=== PATIENT | female | born 1940 | race Caucasian/White ===

== ENCOUNTER 2017-03-03 10:47 | Outpatient (CLI) | payer MEDICARE ==
[2017-03-03 18:39] LABS: CALCIUM 9.5 mg/dL (8.5-10.3); CREATININE 1.1 mg/dL (0.4-1.0); POTASSIUM 4.4 mmol/L (3.5-5.0)
[2017-03-03 18:48] LABS: BASOPHILS % (AUTO) 0.5 %; EOSINOPHILS # (AUTO) 0.1 10^3/uL (0.0-0.7); HCT - HEMATOCRIT 42.4 % (37.0-47.0); HGB - HEMOGLOBIN 13.6 g/dL (12.0-16.0); LYMPHOCYTES # (AUTO) 0.9 10^3/uL (1.5-3.5); LYMPHOCYTES % (AUTO) 12.2 %; MEAN CORPUSCULAR HEMOGLOBIN 29.2 pg (27.0-31.0); MEAN CORPUSCULAR VOLUME 91.2 fL (81.0-99.0); MEAN PLATELET VOLUME 9.1 fL (7.9-10.8); MONOCYTES # (AUTO) 0.5 10^3/uL (0.0-1.0); MONOCYTES % (AUTO) 6.7 %; NEUTROPHILS # (AUTO) 5.8 10^3/uL (1.5-6.6); NEUTROPHILS % (AUTO) 79.6 %; NUCLEATED RED BLOOD CELLS AUTO 0.1 /100WBC; RED BLOOD COUNT 4.65 10^6/uL (4.20-5.40); RED CELL DISTRIBUTION WIDTH 16.9 % (12.0-15.0); UNCORRECTED WHITE BLOOD COUNT 7.3 x10^3/uL; WHITE BLOOD COUNT 7.3 x10^3/uL (4.8-10.8)
== END 2017-03-03 10:48 | disposition home or self-care (01) ==
LOC: LAB.F 10:47
PROVIDERS: ATTEND Internal Medicine
DX: E78.5 Hyperlipidemia, unspecified (principal); E03.9 Hypothyroidism, unspecified; G62.9 Polyneuropathy, unspecified; R06.00 Dyspnea, unspecified
CPT/HCPCS: 36415; 80048; 83880; 85025

== ENCOUNTER 2017-03-08 18:30 | Emergency (ER) | payer MEDICARE ==
[2017-03-08] MEDS ORDERED: IPRATROPIUM/ALBUTEROL 3 ML NEB INH STA (19:03)
--- NOTE | 2017-03-08 19:08 | ED Physician Documentation ---
PD HPI DYSPNEA - Stated complaint Stated Complaint: SOA - Chief complaint Chief Complaint: Critical Care - History obtained from History obtained from: Patient - History of Present Illness Timing - onset: Other (For about 6 months now she's had progressive dyspnea, with an exertional component but no orthopnea. It is reach the point at this juncture where she can't roll over in bed or even walk 3 feet without becoming winded. Back in September she had a chest x-ray showing cardiomegaly. She had spirometry at that point showing obstructive lung disease. She was never a smoker. She has a mild cough. No chest pain. More recently she had labs 5 days ago with an elevated BNP. She has no pedal edema.) Review of Systems Ten Systems: 10 systems reviewed and negative Constitutional: denies: Fever, Chills Eyes: reports: Reviewed and negative Throat: reports: Reviewed and negative Cardiac: denies: Chest pain / pressure, Palpitations, Pedal edema, Calf pain Respiratory: denies: Hemoptysis, Wheezing PD PAST MEDICAL HISTORY - Past Medical History Past Medical History: Yes GI: GERD - Past Surgical History Past Surgical History: No - Present Medications Home Medications: Ambulatory Orders Medication Instructions Recorded Confirmed Albuterol Sulfate [Proventil Hfa 1 - 2 puffs IH Q4H PRN #1 03/08/17 Inhaler] hfa.aer.ad Azithromycin [Zithromax] 250 mg PO DAILY #4 tablet 03/08/17 - Allergies Allergies/Adverse Reactions: Allergies Allergy/AdvReac Type Severity Reaction Status Date / Time adhesive Allergy Unknown Verified 03/08/17 18:48 amoxicillin Allergy Unknown Verified 03/08/17 18:48 Sulfa (Sulfonamide Allergy Unknown Verified 03/08/17 18:48 Antibiotics) - Social History Does the pt smoke?: No Smoking Status: Never smoker - Family History Family history: reports: Non contributory - POLST Patient has POLST: No PD ED PE NORMAL - Vitals Vital signs reviewed: Yes - General General: Alert and oriented X 3, No acute distress - HEENT HEENT: PERRL, EOMI, Ears normal - Neck Neck: Supple, no meningeal sign, No JVD - Cardiac Cardiac: RRR, No murmur - Respiratory Respiratory: Other (Seems a little winded at rest, fine rhonchi throughout) - Abdomen Abdomen: Soft, Non tender - Extremities Extremities: No deformity, No tenderness to palpate, No edema, No calf tenderness / cord - Neuro Neuro: Alert and oriented X 3, Normal speech - Psych Psych: Normal mood, Normal affect Results - Vitals Vitals: Vital Signs - 24 hr 03/08/17 03/08/17 03/08/17 18:35 19:28 21:03 Temperature 37.7 C H 37.0 C Heart Rate 105 H 100 86 Respiratory 24 21 14 Rate Blood Pressure 142/97 H 128/82 H O2 Saturation 92 97 Oxygen O2 Source Room air - EKG (time done) 1847 Rate: Rate (enter#) (106) Rhythm: Sinus tachycardia (with pvcs) Prosser: RAD Intervals: Normal ND Ischemia: Normal ST segments Computer interpretation: Agree with computer - Labs Labs: Laboratory Tests 03/08/17 03/08/17 03/08/17 19:06 19:06 19:06 WBC 10.4 RBC 4.64 Hgb 13.3 Hct 41.5 MCV 89.5 MCH 28.6 MCHC 32.0 RDW 16.9 H Plt Count 151 MPV 8.3 Neut # 9.2 H Lymph # 0.4 L [place] # 0.7 Eos # 0.0 Baso # 0.0 Absolute Nucleated RBC 0.00 Nucleated RBCs 0.0 D-Dimer 420.0 H Sodium 137 Potassium 4.1 Chloride 104 Carbon Dioxide 21 Anion Gap 12.0 BUN 16 Creatinine 1.2 H Estimated GFR (MDRD) 44 L Glucose 133 H Calcium 8.6 Total Bilirubin 3.1 H AST 37 ALT 37 Alkaline Phosphatase 58 Troponin I B-Natriuretic Peptide Total Protein 7.0 Albumin 3.9 Globulin 3.1 Albumin/Globulin Ratio 1.3 Lipase 32 03/08/17 03/08/17 19:06 19:06 WBC RBC Hgb Hct MCV MCH MCHC RDW Plt Count MPV Neut # Lymph # [place] # Eos # Baso # Absolute Nucleated RBC Nucleated RBCs D-Dimer Sodium Potassium Chloride Carbon Dioxide Anion Gap BUN Creatinine Estimated GFR (MDRD) Glucose Calcium Total Bilirubin AST ALT Alkaline Phosphatase Troponin I < 0.04 B-Natriuretic Peptide 772 H Total Protein Albumin Globulin Albumin/Globulin Ratio Lipase - Rads (name of study) 2v chest Radiology: EMP read contemporaneously (Persistent patchy densities in the left lower lobe could be scarring or atelectasis, mild bronchial wall thickening, no new consolidation.) Ct CHest Angio Radiology: EMP read contemporaneously (No PE, irregular opacities in the left lung base, could be aspiration or infectious. Small bilateral pleural effusions. There is evidence of right heart strain with retrograde flow of contrast into the IVC and hepatic veins and increased RV to LV ratio. Cardiomegaly with small pericardial effusion, mediastinal lymphadenopathy thought to be reactive.) PD MEDICAL DECISION MAKING - ED course ED course: 77-year-old woman presents with subacute and worsening shortness of breath with exertional dyspnea. Spirometry back in September suggested obstructive disease, however she does have increasing BNPs without evidence of fluid overload currently. D-dimer was high so sent for CT angiogram which did demonstrate reflux of contrast consistent with right-sided heart failure. Also wonder if there might be an infectious component based on imaging studies and borderline temperature of white count. She felt much better after nebulized treatment here. She is started on Zithromax and has an appointment for an echocardiogram tomorrow. She was able to walk in the [place] without hypoxemia or significant tachypnea. Departure - Departure Disposition: Home, Self Care Clinical Impression: Dyspnea Qualifiers: Dyspnea type: dyspnea on exertion Qualified Code(s): R06.09 - Other forms of dyspnea Congestive heart failure Qualifiers: Congestive heart failure type: unspecified congestive heart failure type Congestive heart failure chronicity: unspecified congestive heart failure chronicity Qualified Code(s): I50.9 - Heart failure, unspecified Condition: Good Record reviewed to determine appropriate education?: Yes Instructions: Heart Failure Dc Prescriptions: Albuterol Sulfate [Proventil Hfa Inhaler] 1 - 2 puffs IH Q4H PRN #1 hfa.aer.ad PRN Reason: Cough Azithromycin [Zithromax] 250 mg PO DAILY #4 tablet Comments: Keep your appointment for echocardiogram tomorrow. Follow up with Dr. Demarco Wednesday for results.
[2017-03-08 19:13] LABS: BASOPHILS % (AUTO) 0.4 %; HCT - HEMATOCRIT 41.5 % (37.0-47.0); HGB - HEMOGLOBIN 13.3 g/dL (12.0-16.0); LYMPHOCYTES # (AUTO) 0.4 10^3/uL (1.5-3.5); MEAN CORPUSCULAR HEMOGLOBIN 28.6 pg (27.0-31.0); MEAN CORPUSCULAR VOLUME 89.5 fL (81.0-99.0); MEAN PLATELET VOLUME 8.3 fL (7.9-10.8); MONOCYTES # (AUTO) 0.7 10^3/uL (0.0-1.0); MONOCYTES % (AUTO) 6.6 %; NEUTROPHILS # (AUTO) 9.2 10^3/uL (1.5-6.6); RED BLOOD COUNT 4.64 10^6/uL (4.20-5.40); RED CELL DISTRIBUTION WIDTH 16.9 % (12.0-15.0); UNCORRECTED WHITE BLOOD COUNT 10.4 x10^3/uL; WHITE BLOOD COUNT 10.4 x10^3/uL (4.8-10.8)
[2017-03-08] MEDS ORDERED: IPRATROPIUM/ALBUTEROL 3 ML NEB INH ONE (19:19)
[2017-03-08 19:28] LABS: ALBUMIN/GLOBULIN RATIO 1.3 (1.0-2.2); BILIRUBIN,TOTAL 3.1 mg/dL (0.2-1.0); CALCIUM 8.6 mg/dL (8.5-10.3); CREATININE 1.2 mg/dL (0.4-1.0); POTASSIUM 4.1 mmol/L (3.5-5.0)
--- NOTE | 2017-03-08 19:39 | XRAY Preliminary Report ---
Exam: XR Chest 2 View PA/LAT IMPRESSION: 1. Persistent patchy densities in the left lower lobe could represent areas of scarring or atelectasi s. 2. No new consolidation. Mild bronchial wall thickening suspicious for bronchitis or reactive airway disease. 3. No effusions or pneumothorax noted. [facility] SITE ID: [id number]
--- NOTE | 2017-03-08 19:46 | XRAY Report ---
EXAM: CHEST RADIOGRAPHY EXAM DATE: 03/08/2017 07:19 PM. CLINICAL HISTORY: Dyspnea. COMPARISON: 10/12/2016. TECHNIQUE: 2 views. FINDINGS: Lungs/Pleura: No focal opacities evident. No pleural effusion. No pneumothorax. Normal volumes. Subse gmental atelectasis in the left lower lobe. Mild bronchial wall thickening noted. Mediastinum: EKG leads overlie the chest. Mild cardiac enlargement. Other: None. IMPRESSION: 1. Persistent patchy densities in the left lower lobe could represent areas of scarring or atelectasi s. 2. No new consolidation. Mild bronchial wall thickening suspicious for bronchitis or reactive airway disease. 3. No effusions or pneumothorax noted. [facility] Referring Provider Line: [phone] SITE ID: [id number]
[2017-03-08] MEDS ORDERED: IOPAMIDOL-300 100 ML VIAL IVP ONE (20:20)
--- NOTE | 2017-03-08 20:45 | CT Preliminary Report ---
Exam: CT Chest Angio (PE) IMPRESSION: 1. No pulmonary emboli. 2. Irregular opacities in the left lung base is nonspecific but may represent aspiration or infectiou s process. Small bilateral pleural effusions are also present. 3. There is evidence of right heart strain with retrograde flow of contrast into the IVC and hepatic veins and increased RV LV ratio. 4. Cardiomegaly with mild pericardial effusion. 5. Mediastinal lymphadenopathy is thought to be reactive in nature. [facility] SITE ID: [id number]
--- NOTE | 2017-03-08 20:48 | CT Report ---
EXAM: CT ANGIOGRAM CHEST EXAM DATE: 03/08/2017 08:26 PM. CLINICAL HISTORY: Dyspnea, high dimer. COMPARISON: None. TECHNIQUE: Routine helical imaging was performed through the chest in the pulmonary arterial phase. I V Contrast: 75 ML Isovue 300. Reconstructions: Coronal 3-D MIP reconstructions.Sagittal and coronal. In accordance with CT protocol optimization, one or more of the following dose reduction techniques w ere utilized for this exam: automated exposure control, adjustment of mA and/or KV based on patient s ize, or use of iterative reconstructive technique. FINDINGS: Pulmonary Arteries: Diagnostic quality: Adequate through the segmental arteries. No evidence for acute or chronic pulmona ry emboli. There is evidence of right heart strain with retrograde flow of contrast into the IVC and hepatic vei ns. There is increased RV LV ratio. Lungs/Pleura: Small bilateral pleural effusions. Increased septal markings. Irregular opacities in le ft lung base with bronchiolectasis. Mediastinum: Multiple mediastinal lymph nodes measuring up to 14 mm in short axis in the right lower tracheal station, 9 mm in the prevascular station and 8 mm in the left hilar station. The heart is en larged. Mild pericardial effusion. Thoracic Aorta: Unremarkable. Upper Abdomen: Unremarkable. Other: None. IMPRESSION: 1. No pulmonary emboli. 2. Irregular opacities in the left lung base is nonspecific but may represent aspiration or infectiou s process. Small bilateral pleural effusions are also present. 3. There is evidence of right heart strain with retrograde flow of contrast into the IVC and hepatic veins and increased RV LV ratio. 4. Cardiomegaly with mild pericardial effusion. 5. Mediastinal lymphadenopathy is thought to be reactive in nature. [facility] Referring Provider Line: [phone] SITE ID: [id number]
[2017-03-08 21:03] VITALS: BP 128/82
[2017-03-08] MEDS ORDERED: AZITHROMYCIN 250 MG TABLET PO STA (21:09)
[2017-03-08] MEDS ORDERED: AZITHROMYCIN 250 MG TABLET PO ONE (21:11)
== END 2017-03-08 21:19 | disposition home or self-care (01) ==
LOC: ED 18:30
DX: I50.9 Heart failure, unspecified (principal); R06.00 Dyspnea, unspecified; K21.9 Gastro-esophageal reflux disease without esophagitis
CPT/HCPCS: 36415; 71020; 71275; 80053; 83690; 83880; 84484; 85025; 85379; 93005; 93010; 94640; 99285; A9270; J7620; Q9967

== ENCOUNTER 2017-03-09 08:23 | Outpatient (CLI) | payer MEDICARE | END 2017-03-09 08:24 | disposition home or self-care (01) | DX: R06.00 Dyspnea, unspecified (principal); I08.1 Rheumatic disorders of both mitral and tricuspid valves; I51.7 Cardiomegaly ==

== ENCOUNTER 2017-04-28 11:00 | Outpatient (CLI) | payer MEDICARE ==
[2017-04-28 11:35] LABS: BASOPHILS % (AUTO) 0.7 %; EOSINOPHILS # (AUTO) 0.1 10^3/uL (0.0-0.7); EOSINOPHILS % (AUTO) 1.3 %; HGB - HEMOGLOBIN 13.5 g/dL (12.0-16.0); LYMPHOCYTES # (AUTO) 0.9 10^3/uL (1.5-3.5); LYMPHOCYTES % (AUTO) 18.8 %; MEAN CORPUSCULAR HEMOGLOBIN 28.6 pg (27.0-31.0); MEAN CORPUSCULAR VOLUME 89.3 fL (81.0-99.0); MEAN PLATELET VOLUME 8.8 fL (7.9-10.8); MONOCYTES # (AUTO) 0.4 10^3/uL (0.0-1.0); MONOCYTES % (AUTO) 9.2 %; NEUTROPHILS # (AUTO) 3.2 10^3/uL (1.5-6.6); RED BLOOD COUNT 4.71 10^6/uL (4.20-5.40); RED CELL DISTRIBUTION WIDTH 17.3 % (12.0-15.0); UNCORRECTED WHITE BLOOD COUNT 4.6 x10^3/uL; WHITE BLOOD COUNT 4.6 x10^3/uL (4.8-10.8)
[2017-04-28 11:43] LABS: INR 1.2 (0.8-1.2); PT - PROTHROMBIN TIME 13.9 secs (9.9-12.6)
[2017-04-28 11:50] LABS: PARTIAL THROMBOPLASTIN TIME 27.2 secs (24.9-33.3)
[2017-04-28 11:54] LABS: CALCIUM 9.1 mg/dL (8.5-10.3); CREATININE 1.1 mg/dL (0.4-1.0); POTASSIUM 3.6 mmol/L (3.5-5.0)
== END 2017-04-28 11:01 | disposition home or self-care (01) ==
LOC: LAB 11:00
PROVIDERS: ATTEND Internal Medicine Cardiovascular Disease
DX: I05.0 Rheumatic mitral stenosis (principal); I07.1 Rheumatic tricuspid insufficiency; I34.0 Nonrheumatic mitral (valve) insufficiency
CPT/HCPCS: 36415; 80048; 85025; 85610; 85730

== ENCOUNTER 2017-07-07 09:09 | Outpatient (CLI) | payer MEDICARE ==
--- NOTE | 2017-07-08 12:30 | Mammography Report ---
DIGITAL SCREENING MAMMOGRAM: 07/07/2017 CLINICAL INDICATION: A 77-year-old nulliparous patient, for screening. COMPARISON: 04/2016, 01/2015, 12/2013, 12/2012, 11/2011, 01/2010. TECHNIQUE: Routine CC and MLO projections were obtained of the breasts. FINDINGS: The breasts demonstrate scattered fibroglandular densities bilaterally. Coarse and punctat e, typically benign calcifications are present. No suspicious masses, clustered microcalcifications, or regions of architectural distortion are identified. IMPRESSION: BENIGN FINDINGS. RECOMMENDATION: ROUTINE ANNUAL SCREENING UNLESS OTHERWISE CLINICALLY INDICATED. BIRADS CATEGORY 2-BENIGN FINDINGS. STANDARD QUALIFYING STATEMENTS 1. This examination was reviewed with the aid of Computer-Aided Detection (CAD). 2. A negative or benign imaging report should not delay biopsy if clinically suspicious findings are present. Consider surgical consultation if warranted. More than 5% of cancers are not identified by i maging. 3. Dense breasts may obscure an underlying neoplasm. JOB #: [id number] EXT JOB #:[id number]
== END 2017-07-07 09:10 | disposition home or self-care (01) ==
LOC: DI 09:09
PROVIDERS: ATTEND Registered Nurse
DX: Z12.31 Encounter for screening mammogram for malignant neoplasm of breast (principal)
CPT/HCPCS: 77067

== ENCOUNTER 2017-07-15 09:05 | Outpatient (CLI) | payer MEDICARE ==
--- NOTE | 2017-07-16 11:29 | DEXA Report ---
DEXA SCAN: 07/15/2017 HISTORY: Primary ovarian failure. TECHNIQUE: Dual energy x-ray absorptiometry (DXA) was performed on a [employer] system. Regions measured are the AP spine, femoral neck, and, if needed, forearm. COMPARISON: None. In accordance with the International Society for Clinical Densitometry (ISCD) guidelines, data from previous exams may be reanalyzed using current recommendations and techniques. This is done to allow a more accurate basis for comparison with the current study. FINDINGS The data for the lumbar spine is as follows: REGION BMD (g/cm/cm) T-SCORE Z-SCORE L1 0.930 -1.7 0.2 L2 0.974 -1.9 0.0 L3 1.077 -1.0 0.9 L4 1.015 -1.5 0.4 TOTAL 1.001 -1.5 0.4 NOTE: All evaluable vertebrae are used for classification. The data for the hip is as follows: REGION BMD (g/cm/cm) T-SCORE Z-SCORE Neck 0.744 -2.1 0.0 TOTAL 0.788 -1.7 0.2 NOTE: The femoral neck or total proximal femur, whichever is lowest, is used for classification. IMPRESSION: THE WHO CLASSIFICATION BASED ON THE INTERNATIONAL REFERENCE STANDARD IS OSTEOPENIA. THE FRACTURE RISK IS INCREASED. RECOMMENDATION: Patients with diagnosis of osteoporosis or osteopenia should have regular bone mineral density assessment. For those eligible for Medicare, routine testing is allowed once every 2 years. Testing frequency can be increased for patients who have rapidly progressing disease or for those who are receiving medical therapy to restore bone mass. COMMENT: World Health Organization (WHO) definitions for osteoporosis and osteopenia: NORMAL BMD: T-score at -1.0 or higher, fracture risk is low. OSTEOPENIA BMD: T-score between -1.0 and -2.5, fracture risk is increased. OSTEOPOROSIS BMD: T-score at -2.5 or lower, fracture risk high. National Osteoporosis Foundation recommends: 1. Obtain adequate dietary calcium (at least 1200 mg per day) and vitamin D (400 -800 international units per day). 2. Participate, as appropriate, in regular weightbearing and muscle- strengthening exercise. 3. Avoid tobacco use and reduce alcohol and caffeine intake. 4. For more detailed information see the website at www.NOF.org. MTDD
== END 2017-07-15 09:06 | disposition home or self-care (01) ==
LOC: DI 09:05
PROVIDERS: ATTEND Registered Nurse
DX: M85.89 Other specified disorders of bone density and structure, multiple sites (principal)
CPT/HCPCS: 77080

== ENCOUNTER 2017-09-15 13:42 | Outpatient (CLI) | payer MEDICARE | END 2017-09-15 13:43 | disposition home or self-care (01) | LOC: LAB.F 13:42 | PROVIDERS: ATTEND Internal Medicine | DX: T82.0 Mechanical complication of heart valve prosthesis (principal) | CPT/HCPCS: 85610 ==

== ENCOUNTER 2017-09-22 08:58 | Outpatient (CLI) | payer MEDICARE | END 2017-09-22 08:59 | disposition home or self-care (01) | LOC: LAB.F 08:58 | PROVIDERS: ATTEND Internal Medicine | DX: T82.0 Mechanical complication of heart valve prosthesis (principal) | CPT/HCPCS: 85610 ==

== ENCOUNTER 2017-10-05 08:27 | Outpatient (CLI) | payer MEDICARE | END 2017-10-05 08:28 | disposition home or self-care (01) | LOC: LAB.F 08:27 | PROVIDERS: ATTEND Internal Medicine | DX: T82.0 Mechanical complication of heart valve prosthesis (principal) | CPT/HCPCS: 85610 ==

== ENCOUNTER 2017-10-20 08:56 | Outpatient (CLI) | payer MEDICARE | END 2017-10-20 08:57 | disposition home or self-care (01) | LOC: LAB.F 08:56 | PROVIDERS: ATTEND Internal Medicine | DX: T82.0 Mechanical complication of heart valve prosthesis (principal) | CPT/HCPCS: 85610 ==

== ENCOUNTER 2017-11-16 11:32 | Outpatient (CLI) | payer MEDICARE | END 2017-11-16 11:33 | disposition home or self-care (01) | LOC: LAB.F 11:32 | PROVIDERS: ATTEND Internal Medicine | DX: T82.0 Mechanical complication of heart valve prosthesis (principal) | CPT/HCPCS: 85610 ==

== ENCOUNTER 2017-12-21 19:32 | Outpatient (CLI) | payer MEDICARE | END 2017-12-21 19:33 | disposition EMS.NT | LOC: EMS 19:32 | PROVIDERS: ATTEND Surgery | DX: R04.0 Epistaxis (principal); W01.198A Fall on same level from slipping, tripping and stumbling with subsequent striking against other object, initial encounter; Y93.E2 Activity, laundry; Y92.009 Unspecified place in unspecified non-institutional (private) residence as the place of occurrence of the external cause ==

== ENCOUNTER 2017-12-23 09:47 | Outpatient (CLI) | payer MEDICARE | END 2017-12-23 09:48 | disposition home or self-care (01) | LOC: LAB.F 09:47 | PROVIDERS: ATTEND Internal Medicine | DX: T82.0 Mechanical complication of heart valve prosthesis (principal) | CPT/HCPCS: 85610 ==

== ENCOUNTER 2018-01-07 08:10 | Outpatient (CLI) | payer MEDICARE | END 2018-01-07 08:11 | disposition home or self-care (01) | LOC: LAB.F 08:10 | PROVIDERS: ATTEND Internal Medicine | DX: T82.0 Mechanical complication of heart valve prosthesis (principal) | CPT/HCPCS: 85610 ==

== ENCOUNTER 2018-01-25 07:56 | Outpatient (CLI) | payer MEDICARE | END 2018-01-25 07:57 | disposition home or self-care (01) | LOC: LAB.F 07:56 | PROVIDERS: ATTEND Internal Medicine | DX: T82.0 Mechanical complication of heart valve prosthesis (principal) | CPT/HCPCS: 85610 ==

== ENCOUNTER 2018-03-15 11:19 | Outpatient (CLI) | payer MEDICARE | END 2018-03-15 11:20 | disposition home or self-care (01) | LOC: LAB.F 11:19 | PROVIDERS: ATTEND Internal Medicine | DX: T82.0 Mechanical complication of heart valve prosthesis (principal) | CPT/HCPCS: 85610 ==

== ENCOUNTER 2018-04-15 09:16 | Outpatient (CLI) | payer MEDICARE | END 2018-04-15 09:17 | disposition home or self-care (01) | LOC: LAB.F 09:16 | PROVIDERS: ATTEND Internal Medicine | DX: T82.0 Mechanical complication of heart valve prosthesis (principal) | CPT/HCPCS: 85610 ==

== ENCOUNTER 2018-04-22 08:23 | Outpatient (CLI) | payer MEDICARE | END 2018-04-22 08:24 | disposition home or self-care (01) | LOC: LAB.F 08:23 | PROVIDERS: ATTEND Internal Medicine | DX: T82.0 Mechanical complication of heart valve prosthesis (principal) | CPT/HCPCS: 85610 ==

== ENCOUNTER 2018-06-03 07:45 | Outpatient (CLI) | payer MEDICARE | END 2018-06-03 07:46 | disposition home or self-care (01) | LOC: LAB.F 07:45 | PROVIDERS: ATTEND Internal Medicine | DX: T82.0 Mechanical complication of heart valve prosthesis (principal) | CPT/HCPCS: 85610 ==

== ENCOUNTER 2018-07-28 10:57 | Outpatient (CLI) | payer MEDICARE | END 2018-07-28 10:58 | disposition home or self-care (01) | LOC: LAB.F 10:57 | PROVIDERS: ATTEND Internal Medicine | DX: T82.0 Mechanical complication of heart valve prosthesis (principal) | CPT/HCPCS: 85610 ==

== ENCOUNTER 2018-08-05 13:01 | Outpatient (CLI) | payer MEDICARE | END 2018-08-05 13:02 | disposition home or self-care (01) | LOC: LAB.F 13:01 | PROVIDERS: ATTEND Internal Medicine | DX: T82.0 Mechanical complication of heart valve prosthesis (principal) | CPT/HCPCS: 85610 ==

== ENCOUNTER 2018-08-10 15:15 | Outpatient (CLI) | payer MEDICARE | END 2018-08-10 15:16 | disposition home or self-care (01) | LOC: LAB.F 15:15 | PROVIDERS: ATTEND Internal Medicine | DX: T82.0 Mechanical complication of heart valve prosthesis (principal) | CPT/HCPCS: 85610 ==

== ENCOUNTER 2018-09-21 10:50 | Outpatient (CLI) | payer MEDICARE | END 2018-09-21 10:51 | disposition home or self-care (01) | LOC: LAB.F 10:50 | PROVIDERS: ATTEND Internal Medicine | DX: T82.0 Mechanical complication of heart valve prosthesis (principal) | CPT/HCPCS: 85610 ==

== ENCOUNTER 2018-10-30 20:14 | Emergency (ER) | payer MEDICARE, OTHER ==
--- NOTE | 2018-10-30 20:35 | ED Physician Documentation ---
PD HPI LOWER EXT INJURY - Stated complaint Stated Complaint: GLF - KNEE PX - Chief complaint Chief Complaint: Ext Problem - History obtained from History obtained from: Patient - History of Present Illness PD HPI LOW EXT INJURY LOCATION: Both (She slipped on wet ground this morning and landed on her butt. Her but does not hurt. She is 100% sure she did not hit her head and she does not have a headache. Both knees hurt, left greater than right. She has would have out sounds like a history of a patellar bursectomy on the right remotely. She is able to walk and bear weight and declines anything stronger for pain.) Review of Systems Constitutional: denies: Fever, Chills GI: denies: Abdominal Pain, Nausea, Vomiting : reports: Reviewed and negative Neurologic: denies: Headache, Head injury PD PAST MEDICAL HISTORY - Past Medical History Cardiovascular: Congestive heart failure, Hypertension, High cholesterol, Murmur, Valve disorder Respiratory: Asthma, Pneumonia, Shortness of breath Endocrine/Autoimmune: HyPOthyroidism GI: GERD : Frequency HEENT: Chronic vision loss Musculoskeletal: Osteoporosis, Osteopenia, Chronic back pain Derm: None - Past Surgical History Past Surgical History: No General: Colonoscopy, EGD 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 Cardiovascular: Valve replacement HEENT: Tonsil/Adenoidectomy, Other Derm: Skin cancer surgery - Present Medications Home Medications: Ambulatory Orders Medication Instructions Recorded Confirmed Aspirin 81 mg PO DAILY 10/28/17 10/28/17 Docusate Sodium 100 mg PO DAILY 10/28/17 10/28/17 Fluticasone [Flonase] 1 spray LUCIE DAILY 10/28/17 10/28/17 Gabapentin 100 mg PO QPM 10/28/17 10/28/17 Levothyroxine Sodium 50 mcg PO QDAC 10/28/17 10/28/17 Loratadine [Claritin] 10 mg PO DAILY 10/28/17 10/28/17 Metoprolol Succinate 25 mg PO DAILY 10/28/17 10/28/17 Pantoprazole Sodium 40 mg PO QDAC 10/28/17 10/28/17 Warfarin Sodium [Coumadin] 6 mg PO QPM 10/28/17 10/28/17 traMADol [Ultram] 50 mg PO Q4-6H PRN #10 tablet 10/30/18 - Allergies Allergies/Adverse Reactions: Allergies Allergy/AdvReac Type Severity Reaction Status Date / Time adhesive Allergy Unknown Verified 10/30/18 20:23 amoxicillin Allergy Unknown Verified 10/30/18 20:23 Sulfa (Sulfonamide Allergy Unknown Verified 10/30/18 20:23 Antibiotics) hydrocodone AdvReac Emesis Verified 10/30/18 20:23 Zochjup-Dlz-Wvi Reductase AdvReac Unknown Verified 10/30/18 20:23 Inhibitor - Social History Does the pt smoke?: No Smoking Status: Never smoker - POLST Patient has POLST: No POLST Status: Full Code PD ED PE NORMAL - Vitals Vital signs reviewed: Yes - General General: Alert and oriented X 3, No acute distress - HEENT HEENT: PERRL, EOMI - Neck Neck: Supple, no meningeal sign, No bony TTP - Extremities Extremities: Other (She has a small right and moderate left sided effusion. There is tenderness to the right medial joint line and no tenderness of the left knee. Bilaterally, the ACL, PCL's, LCL, MCL's are intact. She does have some positive / mildly positive grind testing on the left.) - Neuro Neuro: Alert and oriented X 3, Normal speech Results - Vitals Vitals: Vital Signs - 24 hr 10/30/18 20:17 Temperature 36.1 C L Heart Rate 84 Respiratory 18 Rate Blood Pressure 129/72 O2 Saturation 97 Oxygen O2 Source Room air - Labs Labs: Laboratory Tests 10/30/18 21:20 Whole Blood INR 3.8 H - Rads (name of study) B knee XRs Radiology: EMP read contemporaneously (Right patellar enthesophyte, Small left knee effusion, otherwise normal) Departure - Departure Disposition: Home, Self Care Clinical Impression: Strain of left knee Qualifiers: Encounter type: initial encounter Qualified Code(s): S86.912A - Strain of unspecified muscle(s) and tendon(s) at lower leg level, left leg, initial encounter Right knee sprain Qualifiers: Encounter type: initial encounter Involved ligament of knee: unspecified ligament Qualified Code(s): S83.91XA - Sprain of unspecified site of right knee, initial encounter Condition: Good Record reviewed to determine appropriate education?: Yes Instructions: ED Sprain Knee Follow-Up: [facility] [Provider Group] - Within 1 week Prescriptions: traMADol [Ultram] 50 mg PO Q4-6H PRN #10 tablet PRN Reason: Pain Comments: Skip your warfarin tonight. Half dose tomorrow. Recheck the levels on Wednesday.
--- NOTE | 2018-10-30 21:21 | XRAY Report ---
Reason: knee inj B Procedure Date: 10/30/2018 Accession Number: [id number] / [id number] Procedure: XR - Knee 4 View BILAT CPT Code: FULL RESULT: EXAMS: 1. Right Knee Radiography 2. Left Knee Radiography EXAM DATE:10/30/2018 08:59 PM. CLINICAL HISTORY:Bilateral knee pain, left more than right after fall. COMPARISON: KNEE 4 VIEW LT 08/24/2016 11:31 AM. TECHNIQUE: 4 views each. FINDINGS: Right Knee: Bones: Enthesophyte at the anterosuperior aspect of the patella. No acute fracture or bone lesion. Joints: Normal. No effusion. No subluxations. Soft Tissues: Normal. No soft tissue swelling. Left Knee: Bones: Normal. No fractures or bone lesions. Joints: Questionable small left knee joint effusion. No subluxation. Soft Tissues: Normal. No soft tissue swelling. IMPRESSION: 1. Enthesophyte at the anterosuperior aspect of the right patella. 2. Questionable small left knee joint effusion. 3. Otherwise, unremarkable bilateral knee radiography. No acute fracture or dislocation [facility]
[2018-10-30] MEDS ORDERED: traMADol 50 MG TABLET PO STA (21:36)
[2018-10-30 21:49] VITALS: BP 121/70
== END 2018-10-30 21:48 | disposition home or self-care (01) ==
LOC: ED 20:14
DX: S86.912A Strain of unspecified muscle(s) and tendon(s) at lower leg level, left leg, initial encounter (principal); S83.91XA Sprain of unspecified site of right knee, initial encounter; W01.0XXA Fall on same level from slipping, tripping and stumbling without subsequent striking against object, initial encounter; I10 Essential (primary) hypertension; Z95.2 Presence of prosthetic heart valve; Z79.01 Long term (current) use of anticoagulants; Z79.82 Long term (current) use of aspirin
CPT/HCPCS: 73564; 85610; 99283; A9270

== ENCOUNTER 2018-11-01 13:59 | Outpatient (CLI) | payer MEDICARE, OTHER | END 2018-11-01 14:00 | disposition home or self-care (01) | LOC: LAB.F 13:59 | PROVIDERS: ATTEND Registered Nurse | DX: T82.0 Mechanical complication of heart valve prosthesis (principal) | CPT/HCPCS: 85610 ==

== ENCOUNTER 2018-11-17 12:04 | Outpatient (CLI) | payer MEDICARE ==
--- NOTE | 2018-11-18 09:10 | Mammography Report ---
Reason: SCREENING MAMMO Procedure Date: 11/17/2018 Accession Number: [id number] / [id number] Procedure: [facility] - Screening Mammo w/Bruce CPT Code: FULL RESULT: EXAM: Screening Mammo w/Bruce DATE: 11/17/2018 1:35 PM CLINICAL HISTORY: Screening encounter. History of nulliparity. TECHNIQUE: Bilateral CC, laterally exaggerated CC, MLO views were obtained. COMPARISON: 07/07/2017 through 01/17/2014. FINDINGS: The breasts demonstrate scattered fibroglandular densities bilaterally. There are coarse typically benign calcifications. Typically benign right breast intramammary lymph nodes are stable. No suspicious masses, clustered microcalcifications, or regions of architectural distortion are identified. IMPRESSION: Benign findings RECOMMENDATION: Routine annual screening unless otherwise clinically indicated. BIRADS CATEGORY 2: Benign findings STANDARD QUALIFYING STATEMENTS: 1. This examination was not reviewed with the aid of Computer-Aided Detection (CAD). 2. A negative or benign imaging report should not preclude biopsy if clinically suspicious findings are present. 3. Dense breasts may obscure an underlying neoplasm. 4. This examination was reviewed with the aid of 3D breast imaging (tomosynthesis).
== END 2018-11-17 12:05 | disposition home or self-care (01) ==
LOC: DI 12:04
PROVIDERS: ATTEND Registered Nurse
DX: Z12.31 Encounter for screening mammogram for malignant neoplasm of breast (principal)
CPT/HCPCS: 77063; 77067

== ENCOUNTER 2018-11-22 13:03 | Outpatient (CLI) | payer MEDICARE, OTHER | END 2018-11-22 13:04 | disposition home or self-care (01) | LOC: LAB.F 13:03 | PROVIDERS: ATTEND Registered Nurse | DX: T82.0 Mechanical complication of heart valve prosthesis (principal) | CPT/HCPCS: 85610 ==

== ENCOUNTER 2018-12-01 11:09 | Outpatient (CLI) | payer MEDICARE, OTHER | END 2018-12-01 11:10 | disposition home or self-care (01) | LOC: LAB.F 11:09 | PROVIDERS: ATTEND Registered Nurse | DX: T82.0 Mechanical complication of heart valve prosthesis (principal); Z79.01 Long term (current) use of anticoagulants | CPT/HCPCS: 85610 ==

== ENCOUNTER 2018-12-22 11:36 | Outpatient (CLI) | payer MEDICARE, OTHER | END 2018-12-22 11:37 | disposition home or self-care (01) | LOC: LAB.F 11:36 | PROVIDERS: ATTEND Registered Nurse | DX: T82.0 Mechanical complication of heart valve prosthesis (principal); Z79.01 Long term (current) use of anticoagulants | CPT/HCPCS: 85610 ==

== ENCOUNTER 2019-01-18 10:24 | Outpatient (CLI) | payer MEDICARE, OTHER | END 2019-01-18 10:25 | disposition home or self-care (01) | LOC: LAB.F 10:24 | PROVIDERS: ATTEND Registered Nurse | DX: Z51.81 Encounter for therapeutic drug level monitoring (principal); Z79.01 Long term (current) use of anticoagulants | CPT/HCPCS: 85610 ==

== ENCOUNTER 2019-02-02 09:34 | Outpatient (CLI) | payer MEDICARE, OTHER | END 2019-02-02 09:35 | disposition home or self-care (01) | LOC: LAB.F 09:34 | PROVIDERS: ATTEND Registered Nurse | DX: T82.0 Mechanical complication of heart valve prosthesis (principal); Z79.01 Long term (current) use of anticoagulants | CPT/HCPCS: 85610 ==

== ENCOUNTER 2019-03-09 13:00 | Outpatient (CLI) | payer MEDICARE, OTHER | END 2019-03-09 13:01 | disposition home or self-care (01) | LOC: LAB.F 13:00 | PROVIDERS: ATTEND Registered Nurse | DX: Z51.81 Encounter for therapeutic drug level monitoring (principal); T82.0 Mechanical complication of heart valve prosthesis; Z79.01 Long term (current) use of anticoagulants | CPT/HCPCS: 85610 ==

== ENCOUNTER 2019-03-16 13:33 | Outpatient (CLI) | payer MEDICARE, OTHER | END 2019-03-16 13:34 | disposition home or self-care (01) | LOC: LAB.F 13:33 | PROVIDERS: ATTEND Registered Nurse | DX: T82.0 Mechanical complication of heart valve prosthesis (principal); Z79.01 Long term (current) use of anticoagulants | CPT/HCPCS: 85610 ==

== ENCOUNTER 2019-03-24 10:49 | Outpatient (CLI) | payer MEDICARE, OTHER | END 2019-03-24 10:50 | disposition home or self-care (01) | LOC: LAB.F 10:49 | PROVIDERS: ATTEND Registered Nurse | DX: T82.0 Mechanical complication of heart valve prosthesis (principal); Z79.01 Long term (current) use of anticoagulants | CPT/HCPCS: 85610 ==

== ENCOUNTER 2019-04-20 09:53 | Outpatient (CLI) | payer MEDICARE, OTHER | END 2019-04-20 09:54 | disposition home or self-care (01) | LOC: LAB.F 09:53 | PROVIDERS: ATTEND Registered Nurse | DX: Z79.01 Long term (current) use of anticoagulants (principal); T82.0 Mechanical complication of heart valve prosthesis | CPT/HCPCS: 85610 ==

== ENCOUNTER 2019-05-25 08:42 | Outpatient (CLI) | payer MEDICARE, OTHER | END 2019-05-25 08:43 | disposition home or self-care (01) | LOC: LAB.S 08:42 | PROVIDERS: ATTEND Registered Nurse | DX: T82.0 Mechanical complication of heart valve prosthesis (principal); Z79.01 Long term (current) use of anticoagulants | CPT/HCPCS: 85610 ==

== ENCOUNTER 2019-06-29 08:52 | Outpatient (CLI) | payer MEDICARE, OTHER | END 2019-06-29 08:53 | disposition home or self-care (01) | LOC: LAB.S 08:52 | PROVIDERS: ATTEND Registered Nurse | DX: T82.0 Mechanical complication of heart valve prosthesis (principal); Z79.01 Long term (current) use of anticoagulants | CPT/HCPCS: 85610 ==

== ENCOUNTER 2019-07-28 13:20 | Outpatient (CLI) | payer MEDICARE, OTHER | END 2019-07-28 13:21 | disposition home or self-care (01) | LOC: LAB.S 13:20 | PROVIDERS: ATTEND Registered Nurse | DX: Z51.81 Encounter for therapeutic drug level monitoring (principal); Z79.01 Long term (current) use of anticoagulants; T82.0 Mechanical complication of heart valve prosthesis | CPT/HCPCS: 85610 ==

== ENCOUNTER 2019-08-30 09:54 | Outpatient (CLI) | payer MEDICARE, OTHER | END 2019-08-30 09:55 | disposition home or self-care (01) | LOC: LAB.S 09:54 | PROVIDERS: ATTEND Registered Nurse | DX: T82.0 Mechanical complication of heart valve prosthesis (principal); Z79.01 Long term (current) use of anticoagulants | CPT/HCPCS: 85610 ==

== ENCOUNTER 2019-09-27 13:23 | Outpatient (CLI) | payer MEDICARE, OTHER | END 2019-09-27 13:24 | disposition home or self-care (01) | LOC: LAB.S 13:23 | PROVIDERS: ATTEND Registered Nurse | DX: T82.0 Mechanical complication of heart valve prosthesis (principal); Z79.01 Long term (current) use of anticoagulants | CPT/HCPCS: 85610 ==

== ENCOUNTER 2019-11-15 13:19 | Outpatient (CLI) | payer MEDICARE, OTHER | END 2019-11-15 13:20 | disposition home or self-care (01) | LOC: LAB.S 13:19 | PROVIDERS: ATTEND Registered Nurse | DX: Z79.01 Long term (current) use of anticoagulants (principal); T82.0 Mechanical complication of heart valve prosthesis | CPT/HCPCS: 85610 ==

== ENCOUNTER 2019-11-23 09:45 | Outpatient (CLI) | payer MEDICARE, OTHER ==
--- NOTE | 2019-11-24 09:10 | Mammography Report ---
Reason: ROUTINE MAMMO Procedure Date: 11/23/2019 Accession Number: [id number] / [id number] Procedure: ROSETTA - Screening Mammo w/Bruce CPT Code: Final Report FULL RESULT: EXAM: Screening Mammo w/Bruce DATE: 11/23/2019 10:44 AM CLINICAL HISTORY: Screening encounter. History of nulliparity. TECHNIQUE: (B) - Bilateral CC, laterally exaggerated CC, MLO views were obtained. COMPARISON: 11/17/2018 through 07/07/2017. PARENCHYMAL PATTERN: (A) - The breast(s) demonstrate(s) scattered fibroglandular densities. FINDINGS: There are coarse typically benign calcifications. There are no suspicious masses, calcifications, or areas of distortion. IMPRESSION: Benign findings. BI-RADS category 2. RECOMMENDATION: (ANNUAL) - Recommend routine annual screening mammography. BI-RADS CATEGORY: (2) - Benign Findings. STANDARD QUALIFYING STATEMENTS: 1. This examination was not reviewed with the aid of Computer-Aided Detection (CAD). 2. A negative or benign imaging report should not preclude biopsy if clinically suspicious findings are present. 3. Dense breasts may obscure an underlying neoplasm. 4. This examination was reviewed with the aid of 3D breast imaging (tomosynthesis).
== END 2019-11-23 09:46 | disposition home or self-care (01) ==
LOC: DI 09:45
PROVIDERS: ATTEND Registered Nurse
DX: Z12.31 Encounter for screening mammogram for malignant neoplasm of breast (principal)
CPT/HCPCS: 77063; 77067

== ENCOUNTER 2019-11-23 09:47 | Outpatient (CLI) | payer MEDICARE, OTHER ==
--- NOTE | 2019-11-24 10:08 | DEXA Report ---
Reason: OSTEOPOROSIS W/O PATH FRAC Procedure Date: 11/23/2019 Accession Number: [id number] / [id number] Procedure: DEX - Dexa Spine and/or Hip CPT Code: Final Report FULL RESULT: EXAM: Dexa Spine and/or Hip DATE: 11/23/2019 10:13 AM CLINICAL HISTORY: OSTEOPOROSIS W/O PATH FRAC TECHNIQUE: Dual energy x-ray absorptiometry (DXA) was performed on a [employer] System. Regions measured are the AP Spine, femoral neck, and if needed forearm. COMPARISON: 07/15/2017. In accordance with the International Society for Clinical Densitometry (ISCD) guidelines, data from previous exams may be reanalyzed using current recommendations and techniques. This is done to allow a more accurate basis for comparison with the current study. FINDINGS: The data for the lumbar spine is as follows: BMD (g/cm/cm) T-SCORE Z-SCORE REGION L1 0.885 -2.0 -0.4 L2 1.049 -1.3 0.4 L3 1.084 -1.0 0.7 L4 1.046 -1.3 0.4 TOTAL 1.019 -1.3 0.3 NOTE: All evaluable vertebrae are used for classification The data for the hip is as follows: BMD (g/cm/cm) T-SCORE Z-SCORE REGION Neck 0.708 -2.4 -0.4 TOTAL 0.797 -1.7 0.2 NOTE: The femoral neck or total proximal femur, whichever is lowest, is used for classification. DXA RESULTS SUMMARY: Spine SCAN DATE [age]GE BMD CHANGE VS CHANGE VS PREVIOUS PREVIOUS % [birth year][age]23[birth year]2019 [age] 1[age]019 0.018 1.8 07/15/2017 [age] 1[age]001 * Denotes significant change at the 95% confidence level. Denotes dissimilar scan types or analysis methods. DXA RESULTS SUMMARY: Hip SCAN DATE AGE BMD CHANGE VS CHANGE VS PREVIOUS PREVIOUS % [birth year]2019 [age] 0[age]797 0.009 1.1 [birth year]15[birth year]2017 [age] 0[age]788 * Denotes significant change at the 95% confidence level. Denotes dissimilar scan types or analysis methods. IMPRESSION: THE WHO CLASSIFICATION BASED ON THE INTERNATIONAL REFERENCE STANDARD IS OSTEOPENIA. THE FRACTURE RISK IS INCREASED. RECOMMENDATION: Patients with diagnosis of osteoporosis or osteopenia should have regular bone mineral density assessment. For those eligible for Medicare, routine testing is allowed once every 2 years. Testing frequency can be increased for patients who have rapidly progressing disease or for those who are receiving medical therapy to restore bone mass. COMMENT: World Health Organization (WHO) definitions for osteoporosis and osteopenia: NORMAL BMD: T-score at -1.0 or higher, fracture risk is low OSTEOPENIA BMD: T-score between -1.0 and -2.5, fracture risk is increased. OSTEOPOROSIS BMD: T-score at -2.5 or lower, fracture risk is high. National Osteoporosis Foundation recommends: 1. Obtain adequate dietary calcium (at least 1200 mg per day) and vitamin D (400-800 international units per day). 2. Participate, as appropriate, in regular weightbearing and muscle-strengthening exercise. 3. Avoid tobacco use and reduce alcohol and caffeine intake. 4. For more detailed information see the website at www.NOF.org.
== END 2019-11-23 09:48 | disposition home or self-care (01) ==
LOC: DI 09:47
PROVIDERS: ATTEND Registered Nurse
DX: M85.89 Other specified disorders of bone density and structure, multiple sites (principal)
CPT/HCPCS: 77080

== ENCOUNTER 2019-11-29 15:02 | Outpatient (CLI) | payer MEDICARE, OTHER | END 2019-11-29 15:03 | disposition home or self-care (01) | LOC: LAB.S 15:02 | PROVIDERS: ATTEND Registered Nurse | DX: T82.0 Mechanical complication of heart valve prosthesis (principal); Z79.01 Long term (current) use of anticoagulants | CPT/HCPCS: 85610 ==

== ENCOUNTER 2019-12-19 09:45 | Outpatient (CLI) | payer MEDICARE, OTHER | END 2019-12-19 09:46 | disposition short-term general hospital (02) | LOC: EMS 09:45 | PROVIDERS: ATTEND Surgery | DX: S99.912A Unspecified injury of left ankle, initial encounter (principal); X50.9XXA Other and unspecified overexertion or strenuous movements or postures, initial encounter; Y93.01 Activity, walking, marching and hiking; Y92.000 Kitchen of unspecified non-institutional (private) residence as the place of occurrence of the external cause | CPT/HCPCS: A0425; A0429 ==

== ENCOUNTER 2020-01-01 10:43 | Outpatient (CLI) | payer MEDICARE, OTHER | END 2020-01-01 10:44 | disposition home or self-care (01) | LOC: LAB.S 10:43 | PROVIDERS: ATTEND Registered Nurse | DX: T82.0 Mechanical complication of heart valve prosthesis (principal); Z79.01 Long term (current) use of anticoagulants | CPT/HCPCS: 85610 ==

== ENCOUNTER 2021-11-12 10:49 | Outpatient (CLI) | payer MEDICARE, OTHER ==
--- NOTE | 2021-11-13 13:45 | Mammography Report ---
BILATERAL DIGITAL SCREENING MAMMOGRAM 3D/2D WITH EXAGGERATED CC: 11/12/2021 CLINICAL: Routine screening. Comparison is made to exams dated: 11/23/2019 mammogram, 11/17/2018 mammogram, 07/07/2017 mammogram, an d 05/21/2016 mammogram - [facility]. The tissue of both breasts is predominantly fa tty. No significant masses, calcifications, or other findings are seen in either breast. There has been no significant interval change. IMPRESSION: NEGATIVE There is no mammographic evidence of malignancy. A 1 year screening mammogram is recommended. This exam was interpreted at Station ID: [id number]. NOTE: For mammograms, a report in lay terms will be sent to the patient. Approximately 15% of breast malignancies will not be visualized mammographically. In the management of a palpable breast mass, a negative mammogram must not discourage biopsy of a clinically suspicious lesion. Electronically Signed By: Bigg Henry M.D., jr/ke:11/12/2021 12:06:37 ACR BI-RADS Category 1: Negative 3341F PARENCHYMAL PATTERN: (F) - The breast(s) demonstrate(s) diffuse fatty replacement. BI-RADS CATEGORY: (1) - 1 RECOMMENDATION: (ANNUAL) - Recommend routine annual screening mammography. [id number] 1 year screening LATERALITY: (B)
== END 2021-11-12 10:50 | disposition home or self-care (01) ==
LOC: DI.S 10:49
PROVIDERS: ATTEND Registered Nurse
DX: Z12.31 Encounter for screening mammogram for malignant neoplasm of breast (principal)

== ENCOUNTER 2022-09-11 08:48 | Outpatient (CLI) | payer MEDICARE, OTHER ==
--- NOTE | 2022-09-11 18:04 | XRAY Report ---
PROCEDURE: Ankle 3 View LT INDICATIONS: PAIN OF LEFT ANKLE JOINT TECHNIQUE: 3 views of the ankle were acquired. COMPARISON: Not available. FINDINGS: Bones: Old fractures with internal fixation involving medial and lateral malleoli. There is mixed raffy cent and sclerotic appearance in the lateral aspect of the tibial plafond, suspicious for a osteochon dral lesion. Ankle mortise is uneven with narrowing of joint space laterally. No suspicious bony les ions. Mild degenerative joint disease in tibiotalar joint and talonavicular joint. Calcaneal spurring . Soft tissues: No tibiotalar joint effusion. Achilles tendon appears normal. IMPRESSION: 1. Old fractures with internal fixation in distal tibia and fibula. 2. Mixed lucent and sclerotic appearance in the lateral aspect of tibial plafond, suspicious for a os teochondral lesion. If clinically indicated, MRI would be helpful. 3. Uneven ankle mortise with narrowing of the joint space laterally. 4. Mild degenerative joint disease. Reviewed by: Sandra Hernandez MD on 09/11/2022 6:03 PM PST Approved by: Sandra Hernandez MD on 09/11/2022 6:03 PM PST Station ID: [id number]
== END 2022-09-11 08:49 | disposition home or self-care (01) ==
LOC: DI.S 08:48
PROVIDERS: ATTEND Registered Nurse
DX: M19.072 Primary osteoarthritis, left ankle and foot (principal)

== ENCOUNTER 2023-02-12 10:14 | Outpatient (CLI) | payer MEDICARE, OTHER ==
--- NOTE | 2023-02-12 13:05 | DEXA Report ---
PROCEDURE: Dexa Spine and/or Hip INDICATIONS: OSTEOPOROSIS TECHNIQUE: Dual energy x-ray absorptiometry (DXA) was performed on a [employer] System. Regions measur ed are the AP Spine, femoral neck, and if needed forearm. COMPARISON: DEXA, 11/23/2019. FINDINGS: Lumbar Spine: Bone Mineral Density 0.985 g/cm/cm,T score -1.7, osteopenia Left Femoral Neck: Bone Mineral Density 0.696 g/cm/cm, T score -2.5, osteoporosis Left Hip: Bone Mineral Density 0.801 g/cm/cm,T score minus 1., Osteopenic (T score greater or equal to -1.0: NORMAL) (T score from -1.1 to -2.4: OSTEOPENIA) (T score less than or equal to -2.5 to: OSTEOPOROSIS) Impression: 1. Based on WHO criteria, the patient has osteoporosis. 2. Compared to the last exam, the patient's bone mineral density in lumbar spine has decreased by 3.3 %. The patient's bone mineral density in left hip is not significantly changed. Patients with diagnosis of osteoporosis or osteopenia should have regular bone mineral density assess ment. For those eligible for Medicare, routine testing is allowed once every 2 years. Testing frequ ency can be increased for patients who have rapidly progressing disease or for those who are receivin g medical therapy to restore bone mass. Reviewed by: Sandra Hernandez MD on 02/12/2023 1:03 PM PDT Approved by: Sandra Hernandez MD on 02/12/2023 1:03 PM PDT Station ID: [id number]
== END 2023-02-12 10:15 | disposition home or self-care (01) ==
LOC: DI 10:14
PROVIDERS: ATTEND Registered Nurse
DX: M81.0 Age-related osteoporosis without current pathological fracture (principal)

== ENCOUNTER 2023-10-05 13:18 | Outpatient (CLI) | payer MEDICARE, OTHER ==
--- NOTE | 2023-10-06 09:24 | Mammography Report ---
BILATERAL DIGITAL SCREENING MAMMOGRAM 3D/2D WITH EXAGGERATED CC: 10/05/2023 CLINICAL: Routine screening. Comparison is made to exams dated: 11/12/2021 mammogram, 11/23/2019 mammogram, and 11/17/2018 mammogram - [facility]. There are scattered areas of fibroglandular density in both breasts (category b / 25%-50% glandular t issue). No significant masses, calcifications, or other findings are seen in either breast. There has been no significant interval change. IMPRESSION: NEGATIVE There is no mammographic evidence of malignancy. A 1 year screening mammogram is recommended. Based on the Tyrer Cuzick model (a risk assessment model) the patients lifetime risk is 0.5% and her 10 year risk is 0.0%. According to the ACR, ACS, and NCCN guidelines, an annual breast MRI exam ian g with mammogram is recommended if the patients lifetime risk is 20% or greater. This exam was interpreted at Station ID: [id number]. NOTE: For mammograms, a report in lay terms will be sent to the patient. Approximately 15% of breast malignancies will not be visualized mammographically. In the management of a palpable breast mass, a negative mammogram must not discourage biopsy of a clinically suspicious lesion. Electronically Signed By: Brian harmon/ke:10/05/2023 16:02:05 letter sent: No_Letter ACR BI-RADS Category 1: Negative 3341F PARENCHYMAL PATTERN: (A) - The breast(s) demonstrate(s) scattered fibroglandular densities. BI-RADS CATEGORY: (1) - 1 Mammogram [id number] 1 year screening LATERALITY: (B)
== END 2023-10-05 13:19 | disposition home or self-care (01) ==
LOC: DI.S 13:18
PROVIDERS: ATTEND Registered Nurse
DX: Z12.31 Encounter for screening mammogram for malignant neoplasm of breast (principal); R92.323 Mammographic fibroglandular density, bilateral breasts

== ENCOUNTER 2023-11-24 12:15 | Outpatient (CLI) | payer MEDICARE, OTHER | END 2023-11-24 12:16 | disposition home or self-care (01) | LOC: DI 12:15 | PROVIDERS: ATTEND Registered Nurse | DX: Z95.2 Presence of prosthetic heart valve (principal); I08.1 Rheumatic disorders of both mitral and tricuspid valves | CPT/HCPCS: 93307 ==

== ENCOUNTER 2024-05-20 10:20 | Outpatient (CLI) | payer MEDICARE, OTHER | END 2024-05-20 23:59 | disposition critical access hospital (66) | LOC: EMS 10:20 | DX: M25.511 Pain in right shoulder (principal); W01.0XXA Fall on same level from slipping, tripping and stumbling without subsequent striking against object, initial encounter; Y93.01 Activity, walking, marching and hiking; Y92.008 Other place in unspecified non-institutional (private) residence as the place of occurrence of the external cause | CPT/HCPCS: A0425; A0427 ==

== ENCOUNTER 2024-05-20 10:44 | Emergency (ER) | payer MEDICARE, OTHER ==
--- NOTE | 2024-05-20 10:50 | ED Physician Documentation ---
PD HPI UPPER EXT INJURY - Stated complaint Stated Complaint: GLF - History obtained from History obtained from: Patient, EMS - Additonal information Additional information: Ground-level fall in the yard this morning while taking the dog out and landing directly on her right shoulder with severe pain. She is on warfarin for a prosthetic heart valve and is confident that she did not have a head strike. Pain was severe and is now moderate after 50 mcg of fentanyl on the way here. She has been able to walk and bear weight. PD PAST MEDICAL HISTORY - Past Medical History Cardiovascular: Congestive heart failure, Hypertension, High cholesterol, Murmur, Valve disorder Respiratory: Asthma, Pneumonia, Shortness of breath Neuro: CVA Endocrine/Autoimmune: HyPOthyroidism GI: GERD : Frequency HEENT: Chronic vision loss Musculoskeletal: Osteoporosis, Osteopenia, Chronic back pain Derm: None - Past Surgical History Past Surgical History: No General: Colonoscopy, EGD Ortho: Other /PUBLIC RELATIONS COORDINATOR: Dilation and currettage Cardiovascular: Valve replacement HEENT: Cataracts, Tonsil/Adenoidectomy, Other Derm: Skin cancer surgery - Present Medications Home Medications: Ambulatory Orders Medication Instructions Recorded Confirmed Aspirin 81 mg PO DAILY 10/28/17 10/19/23 Docusate Sodium 100 mg PO DAILY 10/28/17 10/19/23 Fluticasone [Flonase] 1 spray LUCIE DAILY 10/28/17 10/19/23 Gabapentin 100 mg PO QPM 10/28/17 10/19/23 Levothyroxine Sodium 50 mcg PO QDAC 10/28/17 10/19/23 Loratadine [Claritin] 10 mg PO DAILY 10/28/17 10/19/23 Metoprolol Succinate 25 mg PO DAILY 10/28/17 10/19/23 Pantoprazole Sodium 40 mg PO QDAC 10/28/17 10/19/23 Warfarin Sodium [Coumadin] 6 mg PO QPM 10/28/17 10/19/23 traMADol [Ultram] 50 mg PO Q4-6H PRN #10 tablet 10/30/18 10/19/23 Pregabalin 75 mg PO DAILY 10/19/23 10/19/23 Oxycodone HCl/Acetaminophen 1 - 2 each PO Q6H PRN #20 tablet 05/20/24 [Percocet 5-325 mg Tablet] - Allergies Allergies/Adverse Reactions: Allergies Allergy/AdvReac Type Severity Reaction Status Date / Time adhesive Allergy Unknown Verified 05/20/24 10:49 amoxicillin Allergy Unknown Verified 05/20/24 10:49 Sulfa (Sulfonamide Allergy Unknown Verified 05/20/24 10:49 Antibiotics) hydrocodone AdvReac Emesis Verified 05/20/24 10:49 Lgddqlk-OYV-IjE Reductase AdvReac Unknown Verified 05/20/24 10:49 Inhibitor [Hyerkya-Gjk-Gug Reductase Inhibitor] - Social History Does the pt smoke?: No Smoking Status: Never smoker Does the pt drink ETOH?: No Does the pt have substance abuse?: No - Immunizations Immunizations are current?: Yes - POLST Patient has POLST: No POLST Status: Full Code PD ED PE NORMAL - Vitals Vital signs reviewed: Yes - General General: Alert and oriented X 3, No acute distress - Neck Neck: Supple, no meningeal sign, No bony TTP - Back Back: No CVA TTP, No spinal TTP - Derm Derm: Normal color, Warm and dry - Extremities Extremities: Other (Quite tender over the upper humerus and cannot range the shoulder at all. Mild tenderness of the right elbow. Right wrist is nontender with normal neurovascular function of the right hand.) - Neuro Neuro: Alert and oriented X 3 Eye Opening: Spontaneous Motor: Obeys Commands Verbal: Oriented GCS Score: 15 Results - Vitals Vitals: Vital Signs - 24 hr 05/20/24 05/20/24 05/20/24 10:49 11:05 13:00 Temperature 36.4 C L Heart Rate 64 57 L 52 L Respiratory 18 18 14 Rate Blood Pressure 143/89 H 139/74 H 140/73 H O2 Saturation 98 95 93 Oxygen O2 Source Room air - Rads (name of study) X-rays of right elbow and shoulder demonstrate an injury of articular impacted humeral fracture Relevant Findings:: Final report received, EMP independent interpretation of test PD Medical Decision Making - ED course ED course: 84-year-old woman with isolated right shoulder and elbow injury after a ground- level fall. She is anticoagulated but is confident she had no head strike. Imaging demonstrates proximal humerus fracture and she was placed in a sling and also received a dose of IV Dilaudid here after the prehospital fentanyl wore off. She was counseled on follow-up and expected course. I also queried if she had enough help at home and she says between some folks visiting and a 16-year-old in the house she thought she did have enough help and declines to talk with the social services designee about respite care etc. Departure - Departure Disposition: 01 Home, Self Care Clinical Impression: Closed fracture of right proximal humerus Condition: Good Record reviewed to determine appropriate education?: Yes Instructions: ED Fx Shoulder Follow-Up: Orthopedic Care [Provider Group] Prescriptions: Oxycodone HCl/Acetaminophen [Percocet 5-325 mg Tablet] 1 - 2 each PO Q6H PRN #20 tablet PRN Reason: pain Comments: I sent your prescription electronically to the [facility] in [place]. As discussed you do have a proximal humerus fracture andas a general rule fractures such as this are allowed to heal without specific intervention such as surgery. Recommend you follow-up with orthopedic surgeons in about a week for reevaluation You should wear the sling for the most part but she can actually do gentle range of motion exercises after the first few days. I am prescribing a short course of narcotic pain medication for you. These are potentially dangerous and addictive medications that should be used carefully. These medications may constipate you. Take an lxji-nld-drvxejv stool softener (docusate) twice daily with plenty of water while taking these medications. If you go 24 hours without a bowel movement, take nehu-vmd-nxqkjsx miralax, per package instructions. Do not drink or drive while taking these medications. If you received narcotic or sedating medications while in the emergency department, do not drive for 24 hours. Store this medication in a safe, secure place and out of reach of children. It is a violation of federal law to give or sell this medication to another rson or to use in a manner other than prescribed. The ED will not refill narcotic prescriptions, including prescriptions lost or stolen. To dispose of unwanted medications: 1. [facility] provides a [facility] box for medication in pill form only (no liquids) 8:00 am to 4:30 p.m. Wednesday-Wednesday in the lobby of the [facility], [address] [place] [address]. Empty pills into ziplock bag before disposal. Call [phone] for information. 2.[employer] is a free service available to all [facility] residents. Go to [email or web address]/ Note that many narcotic pain relievers also contain Tylenol/acetaminophen. Please ensure that your total dose of acetaminophen from all sources does not exceed 3 g (3000 mg) per day. Forms: PCP List Discharge Date/Time: 05/20/24 13:40
[2024-05-20] MEDS: HYDROmorphone 1 MG/ML CARPUJECT IVP STA (11:03)
--- NOTE | 2024-05-20 12:41 | XRAY Report ---
PROCEDURE: Elbow 3+V RT INDICATIONS: shoulder/elbow inj TECHNIQUE: 3 views of the elbow were acquired. COMPARISON: None FINDINGS: Bones: No fractures or dislocations. No suspicious bony lesions. Soft tissues: No elbow joint effusion. No suspicious soft tissue calcifications. IMPRESSION: Unremarkable elbow radiographs. Limited by patient positioning Reviewed by: Shamir Gordon MD on 05/20/2024 11:40 AM AKMADDIE Approved by: Shamir Gordon MD on 05/20/2024 11:40 AM AKDT Station ID: [id number]
--- NOTE | 2024-05-20 12:42 | XRAY Report ---
PROCEDURE: Shoulder 2+V RT INDICATIONS: shoulder/elbow inj TECHNIQUE: 3 views of the shoulder were acquired. COMPARISON: None FINDINGS: Bones: Comminuted fracture in proximal humerus extends to the articular surface. No pneumothorax. Mid line sternal wires appear chronic interstitial changes. Soft tissues: No suspicious soft tissue calcifications. IMPRESSION: Impacted intra-articular proximal humeral fracture Reviewed by: Shamir Gordon MD on 05/20/2024 11:41 AM AKMADDIE Approved by: Shamir Gordon MD on 05/20/2024 11:41 AM AKDT Station ID: [id number]
[2024-05-20 13:13] VITALS: BP 140/73; O2SAT 93
== END 2024-05-20 13:40 | disposition home or self-care (01) ==
LOC: EDSEX → EDUNIT# → ED 10:44
DX: S42.201A Unspecified fracture of upper end of right humerus, initial encounter for closed fracture (principal); W18.30XA Fall on same level, unspecified, initial encounter; Y93.K1 Activity, walking an animal
CPT/HCPCS: 73030; 73080; 96374; 99284; J1170

== ENCOUNTER 2024-05-31 09:54 | Outpatient (CLI) | payer MEDICARE, OTHER ==
--- NOTE | 2024-05-31 17:56 | XRAY Report ---
PROCEDURE: Shoulder 2+V RT INDICATIONS: PAIN IN RIGHT SHOULDER TECHNIQUE: 3 views of the shoulder were acquired. COMPARISON: 05/20/2024 FINDINGS: Bones: There is a comminuted, impacted fracture of the right humeral head and neck. The fracture fra gments appears similar to the prior examination. No significant interval change can be seen. No glenohumeral dislocation is seen. The visualized ribs appear intact. Age-appropriate degenerative changes are seen. Soft tissues: No suspicious soft tissue calcifications. The visualized lungs are within normal limi ts. IMPRESSION: Stable comminuted, impacted fracture of the right humeral head and neck. Reviewed by: Kota Chicas MD on 05/31/2024 4:55 PM AKDT Approved by: Kota Chicas MD on 05/31/2024 4:55 PM AKDT Station ID: [id number]
== END 2024-05-31 09:55 | disposition home or self-care (01) ==
LOC: DI.S 09:54
PROVIDERS: ATTEND Orthopaedic Surgery
DX: S42.291A Other displaced fracture of upper end of right humerus, initial encounter for closed fracture (principal); M19.011 Primary osteoarthritis, right shoulder